=== PATIENT | male | born 1990 | race Caucasian/White ===

== ENCOUNTER 2018-04-17 16:41 | Outpatient (CLI) | payer OTHER ==
[2018-04-17] MEDS ORDERED: GADOBUTROL 10 MMOL/10 ML VIAL ONE (16:53)
[2018-04-17] MEDS ORDERED: GADOBUTROL 10 MMOL/10 ML VIAL IVP ONE (17:38)
--- NOTE | 2018-04-18 06:06 | MRI Report ---
Reason: CEREBRAL CYSTS,HEADACHE Procedure Date: 04/17/2018 Accession Number: [id number] / [id number] Procedure: MRI - Brain W/WO CPT Code: FULL RESULT: EXAM: MRI BRAIN WITHOUT AND WITH CONTRAST EXAM DATE: 04/17/2018 05:47 PM. CLINICAL HISTORY: CEREBRAL CYSTS,HEADACHE. COMPARISON: None. TECHNIQUE: Multiplanar, multisequence T1-weighted and fluid-sensitive MR sequences of the brain were performed. Sequences optimized for routine evaluation. Other: None. IV Contrast: Gadavist 9 mL.. FINDINGS: Brain Volume: Normal for age. Parenchyma: No acute hemorrhage, mass, or infarct. No white matter lesions identified. No abnormal enhancement. Ventricles/Cisterns: No hydrocephalus. A symmetric prominent CSF signal space posterior to the cerebellum measures up to 3 cm in AP dimension in the midline. There may be slight flattening of the posterior cerebellum though this is equivocal. This could represent either a giant cisterna magna or retrocerebellar arachnoid cyst. This finding is likely incidental. Orbits: Symmetric and unremarkable. Sella Turcica: Unremarkable. IAC: Symmetric and unremarkable. Vasculature: Normal signal flow void is seen in the major arterial structures at the skull base. The dural sinuses are patent and enhance normally. Sinuses: No acute sinus disease. Bones: No focal pathologic appearing marrow signal changes. Other: No Chiari I malformation. IMPRESSION: 1. No acute intracranial abnormality. 2. There is no signal abnormality in the brain parenchyma. No abnormal enhancement. 3. A prominent CSF signal space posterior to the cerebellum could represent either a prominent cisterna magna or retrocerebellar arachnoid cyst. There is no significant mass-effect. 4. The exam is otherwise unremarkable. [facility]
== END 2018-04-17 16:42 | disposition home or self-care (01) ==
LOC: DI 16:41
PROVIDERS: ATTEND Student in an Organized Health Care Education/Training Program
DX: G93.0 Cerebral cysts (principal); R51 Headache
CPT/HCPCS: 70553; A9585